=== PATIENT | male | born 1975 | race Caucasian/White ===

== ENCOUNTER 2022-01-05 21:09 | Emergency (ER) | payer OTHER ==
[2022-01-05 21:14] VITALS: BP 126/76; PULSE 75; RESP 18; TEMP 97; BMI 26.4
[2022-01-05] MEDS ORDERED: DIPHTH,PERTUSS(ACELL),TET 0.5 ML DISP.SYRIN IM ONE ×2 (22:40→22:59)
[2022-01-05] MEDS ORDERED: BACITRACIN 15 GM TUBE TOPICAL OINTMENT ONE (22:47)
[2022-01-05] MEDS ORDERED: LIDOCAINE HCL 1%, 10 MG/ML (20ML VIAL) ONE (22:47)
== END 2022-01-06 00:26 | disposition home or self-care (01) ==
LOC: JER 21:09
PROC: 0HQGXZZ Repair Left Hand Skin, External Approach (ICD-10-PCS; principal; 2022-01-05)
PROC: 3E0234Z Introduction of Serum, Toxoid and Vaccine into Muscle, Percutaneous Approach (ICD-10-PCS; 2022-01-05)
DX: S61.211A Laceration without foreign body of left index finger without damage to nail, initial encounter (principal); W26.0XXA Contact with knife, initial encounter
CPT/HCPCS: 12002-25; 90471; 90715; 99283-25